=== PATIENT | male | born 1985 | race Two or more races ===

== ENCOUNTER 2023-03-03 18:03 | Emergency (ER) | payer BC ==
[~2023-03-03] VITALS: Ht 177.8 cm; Wt 122.5 kg
[2023-03-03] MEDS ORDERED: LIPITOR20 MG PO (18:25)
[2023-03-03] MEDS ORDERED: HYDRODIURIL12.5 MG PO (18:25)
[2023-03-03] MEDS ORDERED: ZESTRIL5 MG PO (18:25)
[2023-03-03 20:05] LABS: HEMATOCRIT 45.2 % (39.0-48.0); HEMOGLOBIN 15.9 g/dL (13-16.00); MEAN CELL VOLUME 89.6 fL (80.0-100.00); MEAN CORPUSCULAR HEMOGLOBIN 31.6 pg (27.00-32.0); MEAN CORPUSCULAR HGB CONC 35.3 g/dl (32.0-36.0); PLATELET COUNT 261 K/uL (150-450); RED BLOOD COUNT 5.04 M/uL (4.00-6.00); RED CELL DISTRIBUTION WIDTH 13.2 % (11.5-14.5)
== END 2023-03-03 21:00 | disposition home or self-care (01) ==
LOC: ER 18:05
PROVIDERS: General Practice
DX: U07.1 COVID-19 (principal); R50.9 Fever, unspecified